=== PATIENT | male | born 1940 | race Caucasian/White ===

== ENCOUNTER 2023-09-06 18:51 | Inpatient (IN) | payer MEDICARE, OTHER ==
[~2023-09-06] VITALS: Ht 175.3 cm; Wt 82.2 kg
[2023-09-06 19:00] VITALS: PULSE 122; RESP 9; O2SAT 91
[2023-09-06 19:15] VITALS: PULSE 116; RESP 14; O2SAT 77
[2023-09-06] MEDS: SODIUM CHLORIDE 0.9% 1,000 ML IV ONE ×2 (19:25→19:40)
[2023-09-06] MEDS: NOREPINEPHRINE 8 MG/250ML KIT 250 ML IV SCH (19:40)
[2023-09-06 19:45] LABS: Basophils # (auto) 0 10 ^3/uL (0-0.2); Eosinophils # (auto) 0 10 ^3/uL (0-0.8); Mean Corpuscular Hemoglobin 30.7 pg (28.0-32.0); White Blood Cell 24.2 10^3/uL (4.4-10.8)
[2023-09-06 19:47] LABS: Basophils % (auto) 0.1 % (0.0-2.0); Hematocrit 49.6 % (41.0-53.0); Hemoglobin 14.7 g/dL (13.5-17.5); Lymphocytes # (auto) 1.3 10 ^3/uL (0.4-5.4); Lymphocytes % (auto) 5.2 % (10.0-50.0); Mean Corpuscular Hgb Conc. 29.7 g/dL (32.0-36.0); Mean Corpuscular Volume 103.3 fL (80.0-100.0); Monocytes # (auto) 0.8 10 ^3/uL (0-1.3); Monocytes % (auto) 3.3 % (0.0-12.0); Neutrophils # (auto) 22.1 10 ^3/uL (1.6-8.6); Neutrophils % (auto) 91.4 % (37.0-80.0); Nucleated Red Blood Cells % 0.1 %; Red Cell Distribution Width 16.8 % (11.8-14.3)
[2023-09-06] MEDS: ROCURONIUM 10MG/ML 10ML VIAL IV ONE ×2 (19:50→20:12)
[2023-09-06] MEDS: ETOMIDATE (2MG/ML) 20ML VIAL IV ONE ×2 (19:50→20:12)
[2023-09-06] MEDS: NOREPINEPHRINE 8 MG/250ML KIT 250 ML IV ONE (19:55)
[2023-09-06 20:00] VITALS: BP 108/53; PULSE 120; RESP 18; O2SAT 100
[2023-09-06] MEDS: MIDAZOLAM DRIP 50 mg/50mL 50 ML IV SCH (20:00)
[2023-09-06 20:03] LABS: Urine Bacteria None Seen /hpf (None Seen)
[2023-09-06 20:11] LABS: Alanine Aminotransferase 48 U/L (7-40); Albumin 3.6 g/dL (3.2-4.8); Alkaline Phosphatase 96 U/L (46-116); Anion Gap 31.00001 (5-15); Aspartate Aminotransferase 66 U/L (13-40); Bilirubin, Total 0.4 mg/dL (0.2-1.0); Blood Urea Nitrogen 41 mg/dL (9-23); Calcium 9.6 mg/dL (8.5-10.1); Chloride 105 mmol/L (98-107); Potassium 4.4 mmol/L (3.5-5.1); Sodium 146 mmol/L (136-145); Total Protein 5.9 g/dL (5.7-8.2)
[2023-09-06] MEDS: MIDAZOLAM DRIP 50 mg/50mL 50 ML IV ONE (20:12)
[2023-09-06 20:21] LABS: INR 1.13 (0.9-1.15); Partial Thromboplastin Time 24.5 SEC (24.5-34.5); Prothrombin Time 11.9 sec (9.3-11.8)
[2023-09-06 20:26] LABS: Amphetamine Screen, Urine Neg (NEGATIVE); Barbiturate Scree,Urine Neg (NEGATIVE); Benzodiazephine Screen, Urine Neg (NEGATIVE); Cocaine Screen, Urine Neg (NEGATIVE); Opiate Scree,Urine Neg (NEGATIVE); Phencyclidine Screen, Urine Neg (NEGATIVE)
[2023-09-06 20:27] LABS: Cannabinoid Screen, Urine Neg (NEGATIVE)
[2023-09-06 20:31] LABS: Carbon Dioxide < 10 mmol/L (20-30); Glucose 961 mg/dL (74-106); Lactic Acid w/Reflex 3.6 mmol/L (0.4-2.0)
[2023-09-06 20:38] LABS: Blood Alcohol < 3.0 mg/dL (<10)
[2023-09-06 20:40] LABS: Urine Amorphous Crystal FEW /hpf (None Seen); Urine Blood 1+ /uL (Negative); Urine Clarity Clear (Clear); Urine Color Light-Yellow (Yellow); Urine Protein, UAD TRACE (Negative); Urine Specific Gravity 1.027 (1.001-1.035); Urine Urobilinogen Normal (Negative); Urine WBC 1 /hpf (0 - 3)
[2023-09-06] MEDS: PIPERACILLIN-TAZOB 3.375GM 100 ML IV ONE (20:45)
[2023-09-06 21:33] LABS: Base Excess -25.5 mmol/L (-2.0-2.0)
[2023-09-06] MEDS ORDERED: INSULIN DRIP 100 UNIT/100ML 100 ML IV SCH (21:45)
[2023-09-06] MEDS ORDERED: DEXTROSE (50%) 50ML SYRG IV PRN (21:45)
[2023-09-06 21:56] VITALS: BP 90/42; PULSE 103; RESP 18; O2SAT 100
[2023-09-06] MEDS: VANCOMYCIN 1GM/200ML 200 ML IV ONE (22:02)
[2023-09-06] MEDS: SODIUM BICARB 8.4% 50Meq/50ml SYR Vial IV ONE (22:08)
[2023-09-06] MEDS: ACCU-CHEK COMFORT CURVE STRIP VI SCH (22:23)
[2023-09-06] MEDS: INSULIN DRIP 100 UNIT/100ML 100 ML IV SCH (22:25)
[2023-09-06] MEDS ORDERED: VANCOMYCIN PER PHARMACY 0 MG IV SCH (22:45)
[2023-09-06] MEDS ORDERED: MORPHINE SULFATE INJ 2 MG/ml SYRG IV PRN (22:45)
[2023-09-06] MEDS ORDERED: NITROGLYCERIN 0.4 MG SL TAB SL PRN (22:45)
[2023-09-06] MEDS ORDERED: ONDANSETRON HCL 4 MG/2 ML VIAL IV PRN (22:45)
[2023-09-06 22:59] VITALS: BP 90/42; PULSE 103; RESP 18; TEMP 98.1; O2SAT 99
[2023-09-06 23:18] LABS: Potassium 4.7 mmol/L (3.5-5.1)
[2023-09-06] MEDS: VASOPRESSIN 20 UNIT/ML ONE (23:18)
[2023-09-06 23:19] LABS: Anion Gap 26.00001 (5-15); Calcium 8.3 mg/dL (8.5-10.1)
[2023-09-06] MEDS: ALBUMIN 5% 250 ML IV ONE (23:19)
[2023-09-06] MEDS: VASOPRESSIN 20 UNITS in SODIUM CHL 0.9% 99 ML IV SCH (23:20)
[2023-09-06 23:24] LABS: BUN/Creatinine Ratio 11.4 (10.0-20.0); Blood Urea Nitrogen 34 mg/dL (9-23)
[2023-09-06 23:31] LABS: Chloride 115 mmol/L (98-107); Sodium 151 mmol/L (136-145)
[2023-09-06 23:45] LABS: Carbon Dioxide < 10 mmol/L (20-30); Glucose 801 mg/dL (74-106)
[2023-09-07] VITALS (87 sets, daily range): BP systolic 72–157; BP diastolic 1–73; PULSE 62–117; RESP 17–25; TEMP 67.6–101.5; O2SAT 85–100
[2023-09-07] MEDS: ENOXAPARIN SOD 100 MG/1 ML SYRINGE SC ONE (00:29)
[2023-09-07] MEDS: LACTATED RINGER'S 1,000 ML IV ONE (00:35)
[2023-09-07] MEDS: SODIUM BICARB 8.4% 50Meq/50ml SYR Vial IV ONE ×2 (01:29→01:33)
[2023-09-07] MEDS: SODIUM BICARB 50mEq/50ml Vial 100 ML in SOD CHL 0.45% 1,000 ML IV SCH (01:30)
[2023-09-07] MEDS ORDERED: DEXTROSE (50%) 50ML SYRG IV PRN ×2 (02:00→06:30)
[2023-09-07] MEDS: INSULIN DRIP 100 UNIT/100ML 100 ML IV SCH ×3 (03:06→06:30)
[2023-09-07] MEDS: ACCU-CHEK COMFORT CURVE STRIP VI SCH ×3 (03:07→15:52)
[2023-09-07 03:11] LABS: Base Excess -9.8 mmol/L (-2.0-2.0)
[2023-09-07] MEDS: PHENYLEPHRINE IV 250 ML IV SCH (03:30)
[2023-09-07] MEDS: fentaNYL Drip 2500mCg/250mlNS 250 ML IV SCH (04:24)
[2023-09-07 04:25] LABS: Basophils # (auto) 0 10 ^3/uL (0-0.2); Basophils % (auto) 0.2 % (0.0-2.0); Eosinophils # (auto) 0 10 ^3/uL (0-0.8); Eosinophils % (auto) 0.1 % (0.0-7.0); Hematocrit 40.2 % (41.0-53.0); Hemoglobin 13.1 g/dL (13.5-17.5); Lymphocytes # (auto) 1.4 10 ^3/uL (0.4-5.4); Lymphocytes % (auto) 7.4 % (10.0-50.0); Mean Corpuscular Hemoglobin 30.9 pg (28.0-32.0); Mean Corpuscular Hgb Conc. 32.6 g/dL (32.0-36.0); Mean Corpuscular Volume 94.8 fL (80.0-100.0); Monocytes # (auto) 0.2 10 ^3/uL (0-1.3); Monocytes % (auto) 1.2 % (0.0-12.0); Neutrophils # (auto) 16.7 10 ^3/uL (1.6-8.6); Neutrophils % (auto) 91.1 % (37.0-80.0); Nucleated Red Blood Cells % 0.2 %; Red Blood Cells 4.24 10^6/uL (4.5-5.90); Red Cell Distribution Width 15.5 % (11.8-14.3); White Blood Cell 18.3 10^3/uL (4.4-10.8)
[2023-09-07 04:50] LABS: Alanine Aminotransferase 64 U/L (7-40); Alkaline Phosphatase 80 U/L (46-116); Anion Gap 22 (5-15); Aspartate Aminotransferase 198 U/L (13-40); BUN/Creatinine Ratio 16.7 (10.0-20.0); Bilirubin, Total 0.7 mg/dL (0.2-1.0); Blood Urea Nitrogen 39 mg/dL (9-23); Calcium 7.8 mg/dL (8.7-10.4); Chloride 118 mmol/L (98-107); Total Protein 4.7 g/dL (5.7-8.2)
[2023-09-07 05:18] LABS: Carbon Dioxide 20 mmol/L (20-30); Potassium 2.7 mmol/L (3.5-5.1); Sodium 160 mmol/L (136-145)
[2023-09-07 05:21] LABS: Glucose 509 mg/dL (74-106)
[2023-09-07] MEDS: SOD CHL 0.45% 1,000 ML IV SCH (05:39)
[2023-09-07] MEDS: POTASSIUM CHL 20MEQ/100ML 100 ML IV SCH ×2 (05:40→11:03)
[2023-09-07] MEDS ORDERED: EPINEPHrine HCL 250 ML IV SCH (09:45)
[2023-09-07] MEDS ORDERED: ENOXAPARIN SOD 40 MG/0.4 ML SYRINGE SC SCH (10:00)
[2023-09-07] MEDS ORDERED: PIPERACILLIN-TAZOB 3.375GM 100 ML IV SCH (10:00)
[2023-09-07] MEDS ORDERED: MEROPENEM 1GM IVPB 50 ML IV SCH (10:00)
[2023-09-07] MEDS: PANTOPRAZOLE 40 MG/10 ML VIAL INJ IV SCH (10:20)
[2023-09-07] MEDS: D5W 5% 1,000 ML IV SCH ×3 (10:21→19:59)
[2023-09-07] MEDS: INSULIN LANTUS (GLARGINE) 1 /0.01ml (100units/ml) SC SCH ×2 (10:21→22:18)
[2023-09-07] MEDS: ACETAMINOPHEN 325 MG TAB PO PRN (10:31)
[2023-09-07 10:42] LABS: Magnesium 2.4 mg/dL (1.6-2.6)
[2023-09-07 11:09] LABS: Chloride 124 mmol/L (98-107); Potassium 3.2 mmol/L (3.5-5.1)
[2023-09-07 11:10] LABS: Anion Gap 14 (5-15); Calcium 8.7 mg/dL (8.5-10.1); Carbon Dioxide 25 mmol/L (20-30)
[2023-09-07 11:15] LABS: BUN/Creatinine Ratio 12.5 (10.0-20.0); Blood Urea Nitrogen 33 mg/dL (9-23)
[2023-09-07 11:21] LABS: Lactic Acid w/Reflex 5.1 mmol/L (0.4-2.0)
[2023-09-07 11:22] LABS: Glucose 149 mg/dL (74-106); Sodium 163 mmol/L (136-145)
[2023-09-07 12:15] LABS: Base Excess -2.7 mmol/L (-2.0-2.0)
[2023-09-07] MEDS: PHENYLEPHRINE INJ 40 MG in SODIUM CHL 0.9% 246 ML IV SCH (12:16)
[2023-09-07] MEDS: NOREPINEPHRINE BITARTRATE 16 MG in SODIUM CHL 0.9% 234 ML IV SCH (12:26)
[2023-09-07] MEDS: MEROPENEM 1GM IVPB 50 ML IV ONE (12:42)
[2023-09-07] MEDS ORDERED: EPINEPHrine HCL INJECTION 16 MG in D5W 5% 234 ML IV SCH (13:30)
[2023-09-07 14:40] LABS: Chloride 124 mmol/L (98-107); Potassium 4.5 mmol/L (3.5-5.1)
[2023-09-07 14:41] LABS: Anion Gap 9 (5-15); Carbon Dioxide 28 mmol/L (20-30)
[2023-09-07 14:42] LABS: Calcium 8.3 mg/dL (8.7-10.4)
[2023-09-07 14:47] LABS: Blood Urea Nitrogen 39 mg/dL (9-23); Glucose 153 mg/dL (74-106)
[2023-09-07 14:59] LABS: Sodium 161 mmol/L (136-145)
[2023-09-07] MEDS: FLECAINIDE ACETATE 50 MG TAB GT ONE (15:15)
[2023-09-07] MEDS: VANCOMYCIN 1GM/200ML 200 ML IV ONE (15:44)
[2023-09-07] MEDS: InsuLIN REG 1unit/0.01ml Soln (100units/ml) SC SCH (15:52)
[2023-09-07] MEDS: ENOXAPARIN SOD 80 MG/0.8ML SYRINGE SC SCH (16:01)
[2023-09-07] MEDS: PHENYLEPHRINE INJ 80 MG in SODIUM CHL 0.9% 242 ML IV SCH (16:19)
[2023-09-07 16:21] LABS: Rapid Influenza A Negative (Negative); Rapid Influenza B Negative (Negative)
[2023-09-07 16:27] LABS: COVID19 ANTIGEN SOFIA FIA NEGATIVE (NEGATIVE)
[2023-09-07] MEDS: EPINEPHrine HCL INJECTION 16 MG in D5W 5% 234 ML IV SCH (19:28)
[2023-09-07] MEDS: NOREPINEPHRINE BITARTRATE 32 MG in SODIUM CHL 0.9% 218 ML IV SCH (19:58)
[2023-09-07] MEDS: MEROPENEM 500MG IVPB 50 ML IV SCH (22:12)
[2023-09-07] MEDS: FLECAINIDE ACETATE 50 MG TAB GT SCH (22:13)
[2023-09-08] VITALS (122 sets, daily range): BP systolic 56–158; BP diastolic 29–87; PULSE 62–78; RESP 17–20; TEMP 97.7–99.9; O2SAT 97–100
[2023-09-08 03:57] LABS: Basophils # (auto) 0 10 ^3/uL (0-0.2); Basophils % (auto) 0.2 % (0.0-2.0); Eosinophils # (auto) 0.1 10 ^3/uL (0-0.8); Eosinophils % (auto) 0.7 % (0.0-7.0); Hematocrit 41.4 % (41.0-53.0); Hemoglobin 13.4 g/dL (13.5-17.5); Lymphocytes # (auto) 1.7 10 ^3/uL (0.4-5.4); Lymphocytes % (auto) 10.7 % (10.0-50.0); Mean Corpuscular Hemoglobin 30.2 pg (28.0-32.0); Mean Corpuscular Hgb Conc. 32.4 g/dL (32.0-36.0); Mean Corpuscular Volume 93.3 fL (80.0-100.0); Monocytes # (auto) 0.4 10 ^3/uL (0-1.3); Monocytes % (auto) 2.8 % (0.0-12.0); Neutrophils # (auto) 13.3 10 ^3/uL (1.6-8.6); Neutrophils % (auto) 85.6 % (37.0-80.0); Nucleated Red Blood Cells % 0.4 %; Red Blood Cells 4.44 10^6/uL (4.5-5.90); Red Cell Distribution Width 15.8 % (11.8-14.3); White Blood Cell 15.5 10^3/uL (4.4-10.8)
[2023-09-08 04:19] LABS: Alanine Aminotransferase 70 U/L (7-40); Albumin 2.9 g/dL (3.2-4.8); Alkaline Phosphatase 70 U/L (46-116); Anion Gap 10 (5-15); Aspartate Aminotransferase 188 U/L (13-40); BUN/Creatinine Ratio 14.6 (10.0-20.0); Blood Urea Nitrogen 39 mg/dL (9-23); Calcium 7.4 mg/dL (8.7-10.4); Carbon Dioxide 24 mmol/L (20-30); Chloride 122 mmol/L (98-107); Magnesium 1.9 mg/dL (1.6-2.6); Potassium 3.7 mmol/L (3.5-5.1); Sodium 156 mmol/L (136-145)
[2023-09-08 04:20] LABS: Bilirubin, Total 0.5 mg/dL (0.2-1.0); Phosphorus 3.2 mg/dL (2.4-5.1); Total Protein 4.5 g/dL (5.7-8.2)
[2023-09-08 04:22] LABS: Glucose 359 mg/dL (74-106)
[2023-09-08 04:26] LABS: Lactic Acid w/Reflex 2.8 mmol/L (0.4-2.0)
[2023-09-08 04:39] LABS: Creatine Kinase IFCC 4825 U/L (46-171)
[2023-09-08] MEDS ORDERED: ENOXAPARIN SOD 30 MG/0.3 ML SYRINGE SC SCH (10:00)
[2023-09-08 10:01] LABS: Protein, Urine 92.6 mg/dL (0.0-11.9)
[2023-09-08 10:03] LABS: Creatinine, Urine 42.63 mg/dL (30.0-125.0)
[2023-09-08] MEDS: FREE WATER GT SCH ×2 (12:06→17:31)
[2023-09-08] MEDS: POTASSIUM CHL 20MEQ/100ML 100 ML IV ONE (13:20)
[2023-09-08] MEDS: MAGNESIUM SULFATE 1GM/100ML 100 ML IV ONE (13:20)
[2023-09-08 15:06] LABS: Albumin 2.9 g/dL (3.2-4.8); Alkaline Phosphatase 107 U/L (46-116); Anion Gap 9 (5-15); Aspartate Aminotransferase 209 U/L (13-40); Calcium 7.8 mg/dL (8.5-10.1); Carbon Dioxide 26 mmol/L (20-30); Chloride 120 mmol/L (98-107); Sodium 155 mmol/L (136-145)
[2023-09-08 15:07] LABS: Bilirubin, Total 0.4 mg/dL (0.2-1.0); Total Protein 4.7 g/dL (5.7-8.2)
[2023-09-08 15:25] LABS: Alanine Aminotransferase 68 U/L (7-40); Potassium 4.6 mmol/L (3.5-5.1)
[2023-09-08 15:26] LABS: Glucose 118 mg/dL (74-106)
[2023-09-08 15:36] LABS: BUN/Creatinine Ratio 14.7 (10.0-20.0); Blood Urea Nitrogen 37 mg/dL (9-23)
[2023-09-08] MEDS: VANCOMYCIN 500 MG in D5W 5% 100 ML IV ONE (17:00)
[2023-09-08] MEDS: DEXTROSE (50%) 50ML SYRG IV PRN (23:30)
[2023-09-08] MEDS ORDERED: DEXTROSE (50%) 50ML SYRG IV PRN (23:45)
[2023-09-09] VITALS (116 sets, daily range): BP systolic 76–159; BP diastolic 52–97; PULSE 59–91; RESP 0–21; TEMP 95.7–99.9; O2SAT 98–100
[2023-09-09] MEDS: D5W 5% 1,000 ML IV SCH
[2023-09-09] MEDS: ACCU-CHEK COMFORT CURVE STRIP VI SCH
[2023-09-09] MEDS: InsuLIN REG 1unit/0.01ml Soln (100units/ml) SC SCH
[2023-09-09 04:00] LABS: Basophils # (auto) 0 10 ^3/uL (0-0.2); Basophils % (auto) 0.3 % (0.0-2.0); Eosinophils # (auto) 0.1 10 ^3/uL (0-0.8); Eosinophils % (auto) 0.8 % (0.0-7.0); Hematocrit 39.8 % (41.0-53.0); Lymphocytes # (auto) 1.4 10 ^3/uL (0.4-5.4); Lymphocytes % (auto) 10.8 % (10.0-50.0); Mean Corpuscular Hemoglobin 30.6 pg (28.0-32.0); Mean Corpuscular Hgb Conc. 32.7 g/dL (32.0-36.0); Mean Corpuscular Volume 93.8 fL (80.0-100.0); Monocytes # (auto) 0.5 10 ^3/uL (0-1.3); Monocytes % (auto) 3.5 % (0.0-12.0); Neutrophils # (auto) 11.2 10 ^3/uL (1.6-8.6); Neutrophils % (auto) 84.6 % (37.0-80.0); Nucleated Red Blood Cells % 0.3 %; Red Blood Cells 4.24 10^6/uL (4.5-5.90); White Blood Cell 13.3 10^3/uL (4.4-10.8)
[2023-09-09 04:47] LABS: Alanine Aminotransferase 71 U/L (7-40); Albumin 2.9 g/dL (3.2-4.8); Alkaline Phosphatase 83 U/L (46-116); Anion Gap 8 (5-15); Aspartate Aminotransferase 169 U/L (13-40); BUN/Creatinine Ratio 14.8 (10.0-20.0); Bilirubin, Total 0.7 mg/dL (0.2-1.0); Blood Urea Nitrogen 34 mg/dL (9-23); Calcium 8.3 mg/dL (8.5-10.1); Carbon Dioxide 26 mmol/L (20-30); Chloride 118 mmol/L (98-107); Glucose 141 mg/dL (74-106); Potassium 4.2 mmol/L (3.5-5.1); Sodium 152 mmol/L (136-145); Total Protein 4.7 g/dL (5.7-8.2)
[2023-09-09 05:44] LABS: Magnesium 2.2 mg/dL (1.6-2.6)
[2023-09-09] MEDS ORDERED: Glucerna 1.2 Cal 1Liter BOTTLE GT SCH (11:30)
[2023-09-09 14:55] LABS: Chloride 118 mmol/L (98-107); Potassium 4.8 mmol/L (3.5-5.1); Sodium 150 mmol/L (136-145)
[2023-09-09 14:56] LABS: Anion Gap 7 (5-15); Carbon Dioxide 25 mmol/L (20-30)
[2023-09-09 14:57] LABS: Calcium 8.1 mg/dL (8.5-10.1)
[2023-09-09 15:02] LABS: BUN/Creatinine Ratio 18.4 (10.0-20.0); Blood Urea Nitrogen 37 mg/dL (9-23); Glucose 232 mg/dL (74-106)
[2023-09-09] MEDS ORDERED: Vital AF 1.2 Cal 1 liter bottle GT SCH (15:15)
[2023-09-09] MEDS: MEROPENEM 1GM IVPB 50 ML IV SCH (18:52)
[2023-09-09] MEDS: VANCOMYCIN 500 MG in D5W 5% 100 ML IV ONE (18:53)
[2023-09-10] VITALS (114 sets, daily range): BP systolic 87–143; BP diastolic 56–94; PULSE 61–84; RESP 12–19; TEMP 91.4–99.7; O2SAT 99–100
[2023-09-10 03:59] LABS: Basophils # (auto) 0 10 ^3/uL (0-0.2); Basophils % (auto) 0.2 % (0.0-2.0); Eosinophils # (auto) 0.1 10 ^3/uL (0-0.8); Eosinophils % (auto) 0.5 % (0.0-7.0); Hematocrit 39.5 % (41.0-53.0); Hemoglobin 13.1 g/dL (13.5-17.5); Lymphocytes % (auto) 8.8 % (10.0-50.0); Mean Corpuscular Hgb Conc. 33.3 g/dL (32.0-36.0); Mean Corpuscular Volume 93.3 fL (80.0-100.0); Monocytes # (auto) 0.5 10 ^3/uL (0-1.3); Monocytes % (auto) 4.3 % (0.0-12.0); Neutrophils # (auto) 9.8 10 ^3/uL (1.6-8.6); Neutrophils % (auto) 86.2 % (37.0-80.0); Nucleated Red Blood Cells % 0.2 %; Red Blood Cells 4.23 10^6/uL (4.5-5.90); Red Cell Distribution Width 15.5 % (11.8-14.3); White Blood Cell 11.3 10^3/uL (4.4-10.8)
[2023-09-10 04:12] LABS: Alanine Aminotransferase 63 U/L (7-40); Albumin 2.9 g/dL (3.2-4.8); Alkaline Phosphatase 87 U/L (46-116); Anion Gap 8 (5-15); Aspartate Aminotransferase 116 U/L (13-40); BUN/Creatinine Ratio 17.9 (10.0-20.0); Bilirubin, Total 0.7 mg/dL (0.2-1.0); Blood Urea Nitrogen 33 mg/dL (9-23); Calcium 9.1 mg/dL (8.5-10.1); Carbon Dioxide 26 mmol/L (20-30); Chloride 118 mmol/L (98-107); Glucose 223 mg/dL (74-106); Potassium 4.3 mmol/L (3.5-5.1); Sodium 152 mmol/L (136-145); Total Protein 4.9 g/dL (5.7-8.2)
[2023-09-10 07:27] LABS: Base Excess -1.5 mmol/L (-2.0-2.0)
[2023-09-10] MEDS: FREE WATER GT SCH (13:10)
[2023-09-10] MEDS: FUROSEMIDE 40 MG/4 ML VIAL IV ONE (15:34)
[2023-09-10] MEDS: VANCOMYCIN 500 MG in D5W 5% 100 ML IV ONE (17:11)
[2023-09-11] VITALS (113 sets, daily range): BP systolic 74–144; BP diastolic 50–89; PULSE 64–85; RESP 0–21; TEMP 73.2–99; O2SAT 99–100
[2023-09-11 04:29] LABS: Alanine Aminotransferase 49 U/L (7-40); Albumin 2.9 g/dL (3.2-4.8); Alkaline Phosphatase 112 U/L (46-116); Anion Gap 8 (5-15); Aspartate Aminotransferase 85 U/L (13-40); BUN/Creatinine Ratio 18.5 (10.0-20.0); Blood Urea Nitrogen 29 mg/dL (9-23); Calcium 9.1 mg/dL (8.5-10.1); Carbon Dioxide 27 mmol/L (20-30); Chloride 111 mmol/L (98-107); Glucose 245 mg/dL (74-106); Potassium 3.8 mmol/L (3.5-5.1); Sodium 146 mmol/L (136-145)
[2023-09-11 04:30] LABS: Bilirubin, Total 0.7 mg/dL (0.2-1.0)
[2023-09-11 06:47] LABS: Base Excess 2.2 mmol/L (-2.0-2.0)
[2023-09-11 07:14] LABS: Basophils # (auto) 0 10 ^3/uL (0-0.2); Basophils % (auto) 0.4 % (0.0-2.0); Eosinophils # (auto) 0 10 ^3/uL (0-0.8); Eosinophils % (auto) 0.6 % (0.0-7.0); Hematocrit 40.2 % (41.0-53.0); Hemoglobin 13.5 g/dL (13.5-17.5); Lymphocytes # (auto) 0.8 10 ^3/uL (0.4-5.4); Lymphocytes % (auto) 10.4 % (10.0-50.0); Mean Corpuscular Hemoglobin 31.3 pg (28.0-32.0); Mean Corpuscular Hgb Conc. 33.5 g/dL (32.0-36.0); Mean Corpuscular Volume 93.3 fL (80.0-100.0); Monocytes # (auto) 0.5 10 ^3/uL (0-1.3); Monocytes % (auto) 6.1 % (0.0-12.0); Neutrophils # (auto) 6.6 10 ^3/uL (1.6-8.6); Neutrophils % (auto) 82.5 % (37.0-80.0); Nucleated Red Blood Cells % 0.2 %; Red Cell Distribution Width 15.3 % (11.8-14.3)
[2023-09-11] MEDS: POTASSIUM CHL 20MEQ/100ML 100 ML IV ONE (08:40)
[2023-09-11] MEDS: INSULIN LANTUS (GLARGINE) 1 /0.01ml (100units/ml) SC SCH ×2 (10:30→22:00)
[2023-09-11 13:11] LABS: Magnesium 2.2 mg/dL (1.6-2.6)
[2023-09-11] MEDS: Vital AF 1.2 Cal 1 liter bottle GT SCH (19:31)
[2023-09-11] MEDS: VANCOMYCIN 500 MG in D5W 5% 100 ML IV ONE (20:08)
[2023-09-12] VITALS (121 sets, daily range): BP systolic 77–139; BP diastolic 48–89; PULSE 67–97; RESP 11–36; TEMP 98.1–100; O2SAT 80–100
[2023-09-12] MEDS: FREE WATER GT SCH (01:54)
[2023-09-12 03:56] LABS: Basophils # (auto) 0 10 ^3/uL (0-0.2); Basophils % (auto) 0.1 % (0.0-2.0); Eosinophils # (auto) 0 10 ^3/uL (0-0.8); Eosinophils % (auto) 0.7 % (0.0-7.0); Hematocrit 37.9 % (41.0-53.0); Hemoglobin 12.7 g/dL (13.5-17.5); Lymphocytes # (auto) 0.8 10 ^3/uL (0.4-5.4); Lymphocytes % (auto) 12.7 % (10.0-50.0); Mean Corpuscular Hemoglobin 31.1 pg (28.0-32.0); Mean Corpuscular Hgb Conc. 33.4 g/dL (32.0-36.0); Monocytes # (auto) 0.6 10 ^3/uL (0-1.3); Monocytes % (auto) 8.6 % (0.0-12.0); Neutrophils # (auto) 5.2 10 ^3/uL (1.6-8.6); Neutrophils % (auto) 77.9 % (37.0-80.0); Nucleated Red Blood Cells % 0.1 %; Red Blood Cells 4.08 10^6/uL (4.5-5.90); Red Cell Distribution Width 15.3 % (11.8-14.3); White Blood Cell 6.6 10^3/uL (4.4-10.8)
[2023-09-12 04:16] LABS: Alanine Aminotransferase 56 U/L (7-40); Albumin 2.8 g/dL (3.2-4.8); Alkaline Phosphatase 100 U/L (46-116); Anion Gap 8 (5-15); Aspartate Aminotransferase 64 U/L (13-40); BUN/Creatinine Ratio 24.1 (10.0-20.0); Bilirubin, Total 0.7 mg/dL (0.2-1.0); Blood Urea Nitrogen 33 mg/dL (9-23); Carbon Dioxide 27 mmol/L (20-30); Chloride 109 mmol/L (98-107); Potassium 3.9 mmol/L (3.5-5.1); Sodium 144 mmol/L (136-145); Total Protein 4.9 g/dL (5.7-8.2)
[2023-09-12 04:20] LABS: Glucose 119 mg/dL (74-106)
[2023-09-12 06:34] LABS: Base Excess 1.7 mmol/L (-2.0-2.0)
[2023-09-12 07:20] LABS: Magnesium 1.8 mg/dL (1.6-2.6)
[2023-09-12] MEDS: FUROSEMIDE 20 MG/2 ML VIAL IV SCH (12:21)
[2023-09-12] MEDS: MAGNESIUM SULFATE 1GM/100ML 100 ML IV ONE (12:26)
[2023-09-13] VITALS (69 sets, daily range): BP systolic 91–145; BP diastolic 58–86; PULSE 70–89; RESP 12–25; TEMP 97.2–99.1; O2SAT 98–100
[2023-09-13 04:16] LABS: Basophils # (auto) 0 10 ^3/uL (0-0.2); Basophils % (auto) 0.2 % (0.0-2.0); Eosinophils # (auto) 0 10 ^3/uL (0-0.8); Eosinophils % (auto) 0.6 % (0.0-7.0); Hematocrit 37.3 % (41.0-53.0); Hemoglobin 12.6 g/dL (13.5-17.5); Lymphocytes # (auto) 0.8 10 ^3/uL (0.4-5.4); Lymphocytes % (auto) 12.2 % (10.0-50.0); Mean Corpuscular Hemoglobin 30.8 pg (28.0-32.0); Mean Corpuscular Hgb Conc. 33.8 g/dL (32.0-36.0); Mean Corpuscular Volume 91.2 fL (80.0-100.0); Monocytes # (auto) 0.7 10 ^3/uL (0-1.3); Monocytes % (auto) 9.6 % (0.0-12.0); Neutrophils # (auto) 5.3 10 ^3/uL (1.6-8.6); Neutrophils % (auto) 77.4 % (37.0-80.0); Nucleated Red Blood Cells % 0.2 %; Red Blood Cells 4.09 10^6/uL (4.5-5.90); Red Cell Distribution Width 15.1 % (11.8-14.3); White Blood Cell 6.9 10^3/uL (4.4-10.8)
[2023-09-13 05:34] LABS: Alanine Aminotransferase 63 U/L (7-40); Albumin 3.1 g/dL (3.2-4.8); Alkaline Phosphatase 124 U/L (46-116); Anion Gap 8 (5-15); Aspartate Aminotransferase 57 U/L (13-40); BUN/Creatinine Ratio 27.6 (10.0-20.0); Blood Urea Nitrogen 37 mg/dL (9-23); Calcium 8.9 mg/dL (8.5-10.1); Carbon Dioxide 29 mmol/L (20-30); Chloride 105 mmol/L (98-107); Glucose 202 mg/dL (74-106); Magnesium 1.9 mg/dL (1.6-2.6); Potassium 3.6 mmol/L (3.5-5.1); Sodium 142 mmol/L (136-145)
[2023-09-13 05:35] LABS: Bilirubin, Total 0.7 mg/dL (0.2-1.0); Total Protein 5.3 g/dL (5.7-8.2)
[2023-09-13 05:44] LABS: CRP High Sensitivity 13.59 mg/dL (<1.0)
[2023-09-13 07:37] LABS: Base Excess 4.1 mmol/L (-2.0-2.0)
[2023-09-13] MEDS ORDERED: DEXTROSE (50%) 50ML SYRG IV PRN (14:15)
[2023-09-13] MEDS: POTASSIUM CHL 20MEQ/100ML 100 ML IV SCH (14:15)
[2023-09-13] MEDS: SOD CHL 0.45% 1,000 ML IV SCH (15:21)
[2023-09-13] MEDS: InsuLIN REG 1unit/0.01ml Soln (100units/ml) SC SCH (18:00)
[2023-09-13] MEDS: ACCU-CHEK COMFORT CURVE STRIP VI SCH (18:07)
[2023-09-13] MEDS: INSULIN LANTUS (GLARGINE) 1 /0.01ml (100units/ml) SC SCH (21:52)
[2023-09-14] VITALS (49 sets, daily range): BP systolic 98–137; BP diastolic 47–83; PULSE 76–93; RESP 8–30; TEMP 98.8–99.7; O2SAT 95–100
[2023-09-14 03:54] LABS: Basophils # (auto) 0 10 ^3/uL (0-0.2); Basophils % (auto) 0.2 % (0.0-2.0); Eosinophils # (auto) 0 10 ^3/uL (0-0.8); Eosinophils % (auto) 0.7 % (0.0-7.0); Hematocrit 36.6 % (41.0-53.0); Hemoglobin 12.4 g/dL (13.5-17.5); Lymphocytes # (auto) 0.8 10 ^3/uL (0.4-5.4); Mean Corpuscular Hgb Conc. 33.8 g/dL (32.0-36.0); Mean Corpuscular Volume 91.8 fL (80.0-100.0); Monocytes # (auto) 0.5 10 ^3/uL (0-1.3); Monocytes % (auto) 7.1 % (0.0-12.0); Neutrophils # (auto) 5.5 10 ^3/uL (1.6-8.6); Nucleated Red Blood Cells % 0.2 %; Red Blood Cells 3.99 10^6/uL (4.5-5.90); Red Cell Distribution Width 15.2 % (11.8-14.3); White Blood Cell 6.9 10^3/uL (4.4-10.8)
[2023-09-14 04:07] LABS: Alanine Aminotransferase 53 U/L (7-40); Albumin 2.9 g/dL (3.2-4.8); Alkaline Phosphatase 113 U/L (46-116); Anion Gap 8 (5-15); Aspartate Aminotransferase 46 U/L (13-40); BUN/Creatinine Ratio 29.8 (10.0-20.0); Bilirubin, Total 0.7 mg/dL (0.2-1.0); Blood Urea Nitrogen 34 mg/dL (9-23); Calcium 8.8 mg/dL (8.5-10.1); Carbon Dioxide 31 mmol/L (20-30); Chloride 105 mmol/L (98-107); Glucose 216 mg/dL (74-106); Magnesium 1.8 mg/dL (1.6-2.6); Potassium 3.3 mmol/L (3.5-5.1); Sodium 144 mmol/L (136-145); Total Protein 5.1 g/dL (5.7-8.2)
[2023-09-14] MEDS: POTASSIUM CHL 20MEQ/100ML 100 ML IV ONE (06:31)
[2023-09-14 07:06] LABS: Base Excess 5.3 mmol/L (-2.0-2.0)
[2023-09-14] MEDS: MAGNESIUM SULFATE 1GM/100ML 100 ML IV SCH (11:58)
[2023-09-14] MEDS: POTASSIUM EFFERVESENT TAB 25 MEQ PO ONE (12:33)
[2023-09-14] MEDS: MEROPENEM 1GM IVPB 50 ML IV SCH (21:42)
[2023-09-15] VITALS (45 sets, daily range): BP systolic 80–138; BP diastolic 43–74; PULSE 64–94; RESP 7–20; TEMP 94.6–99.5; O2SAT 0–100
[2023-09-15 04:23] LABS: Basophils # (auto) 0 10 ^3/uL (0-0.2); Basophils % (auto) 0.3 % (0.0-2.0); Eosinophils # (auto) 0 10 ^3/uL (0-0.8); Eosinophils % (auto) 0.5 % (0.0-7.0); Hematocrit 33.8 % (41.0-53.0); Hemoglobin 11.7 g/dL (13.5-17.5); Lymphocytes # (auto) 0.9 10 ^3/uL (0.4-5.4); Lymphocytes % (auto) 12.1 % (10.0-50.0); Mean Corpuscular Hemoglobin 31.9 pg (28.0-32.0); Mean Corpuscular Hgb Conc. 34.6 g/dL (32.0-36.0); Mean Corpuscular Volume 92.3 fL (80.0-100.0); Monocytes # (auto) 0.5 10 ^3/uL (0-1.3); Monocytes % (auto) 6.7 % (0.0-12.0); Neutrophils % (auto) 80.4 % (37.0-80.0); Nucleated Red Blood Cells % 0.1 %; Red Blood Cells 3.66 10^6/uL (4.5-5.90); Red Cell Distribution Width 15.2 % (11.8-14.3); White Blood Cell 7.5 10^3/uL (4.4-10.8)
[2023-09-15 04:42] LABS: Alanine Aminotransferase 50 U/L (7-40); Albumin 2.9 g/dL (3.2-4.8); Alkaline Phosphatase 103 U/L (46-116); Anion Gap 7 (5-15); Aspartate Aminotransferase 46 U/L (13-40); BUN/Creatinine Ratio 29.8 (10.0-20.0); Bilirubin, Total 0.7 mg/dL (0.2-1.0); Blood Urea Nitrogen 28 mg/dL (9-23); Calcium 8.9 mg/dL (8.5-10.1); Carbon Dioxide 32 mmol/L (20-30); Chloride 104 mmol/L (98-107); Glucose 140 mg/dL (74-106); Magnesium 2.2 mg/dL (1.6-2.6); Phosphorus 3.4 mg/dL (2.4-5.1); Potassium 3.5 mmol/L (3.5-5.1); Sodium 143 mmol/L (136-145)
[2023-09-15 11:46] LABS: Base Excess 5.8 mmol/L (-2.0-2.0)
[2023-09-15] MEDS: ENOXAPARIN SOD 40 MG/0.4 ML SYRINGE SC ONE (12:20)
[2023-09-15] MEDS: POTASSIUM EFFERVESENT TAB 25 MEQ PO ONE (16:39)
[2023-09-15] MEDS: POTASSIUM CHL 20MEQ/100ML 100 ML IV ONE (18:01)
[2023-09-16] VITALS (29 sets, daily range): BP systolic 107–149; BP diastolic 46–69; PULSE 65–88; RESP 10–24; TEMP 96.4–99.2; O2SAT 95–100
[2023-09-16 04:10] LABS: Basophils # (auto) 0 10 ^3/uL (0-0.2); Basophils % (auto) 0.3 % (0.0-2.0); Eosinophils # (auto) 0 10 ^3/uL (0-0.8); Eosinophils % (auto) 0.7 % (0.0-7.0); Hematocrit 31.3 % (41.0-53.0); Hemoglobin 10.5 g/dL (13.5-17.5); Lymphocytes # (auto) 0.9 10 ^3/uL (0.4-5.4); Lymphocytes % (auto) 14.1 % (10.0-50.0); Mean Corpuscular Hgb Conc. 33.6 g/dL (32.0-36.0); Mean Corpuscular Volume 92.1 fL (80.0-100.0); Monocytes # (auto) 0.3 10 ^3/uL (0-1.3); Neutrophils # (auto) 5.2 10 ^3/uL (1.6-8.6); Neutrophils % (auto) 79.9 % (37.0-80.0); Nucleated Red Blood Cells % 0.1 %; Red Cell Distribution Width 15.1 % (11.8-14.3); White Blood Cell 6.5 10^3/uL (4.4-10.8)
[2023-09-16 04:15] LABS: Anion Gap 8 (5-15); Calcium 8.1 mg/dL (8.7-10.4); Carbon Dioxide 28 mmol/L (20-30); Chloride 108 mmol/L (98-107); Potassium 3.3 mmol/L (3.5-5.1); Sodium 144 mmol/L (136-145)
[2023-09-16 04:21] LABS: BUN/Creatinine Ratio 29.9 (10.0-20.0); Blood Urea Nitrogen 23 mg/dL (9-23); Glucose 85 mg/dL (74-106)
[2023-09-16] MEDS: ENOXAPARIN SOD 40 MG/0.4 ML SYRINGE SC SCH (09:40)
[2023-09-16] MEDS: POTASSIUM CHLORIDE 40 MEQ, LIDOCAINE 1% (LOCAL ANESTH.) 4 ML in SODIUM CHL 0.9% 250 ML IV ONE (11:42)
[2023-09-17] VITALS (14 sets, daily range): BP systolic 102–154; BP diastolic 41–75; PULSE 64–86; RESP 11–22; TEMP 97.9–98.9; O2SAT 97–100
[2023-09-17 04:09] LABS: Basophils # (auto) 0 10 ^3/uL (0-0.2); Basophils % (auto) 0.4 % (0.0-2.0); Eosinophils # (auto) 0.1 10 ^3/uL (0-0.8); Eosinophils % (auto) 1.1 % (0.0-7.0); Hematocrit 31.4 % (41.0-53.0); Hemoglobin 10.5 g/dL (13.5-17.5); Lymphocytes % (auto) 15.7 % (10.0-50.0); Mean Corpuscular Hemoglobin 30.8 pg (28.0-32.0); Mean Corpuscular Hgb Conc. 33.6 g/dL (32.0-36.0); Mean Corpuscular Volume 91.7 fL (80.0-100.0); Monocytes # (auto) 0.3 10 ^3/uL (0-1.3); Monocytes % (auto) 4.9 % (0.0-12.0); Neutrophils # (auto) 5.2 10 ^3/uL (1.6-8.6); Neutrophils % (auto) 77.9 % (37.0-80.0); Nucleated Red Blood Cells % 0.1 %; Red Blood Cells 3.43 10^6/uL (4.5-5.90); Red Cell Distribution Width 14.9 % (11.8-14.3); White Blood Cell 6.6 10^3/uL (4.4-10.8)
[2023-09-17 04:23] LABS: Alanine Aminotransferase 42 U/L (7-40); Albumin 2.5 g/dL (3.2-4.8); Alkaline Phosphatase 82 U/L (46-116); Anion Gap 6 (5-15); Aspartate Aminotransferase 36 U/L (13-40); Bilirubin, Total 0.6 mg/dL (0.2-1.0); Calcium 8.1 mg/dL (8.7-10.4); Carbon Dioxide 28 mmol/L (20-30); Chloride 110 mmol/L (98-107); Glucose 152 mg/dL (74-106); Potassium 3.8 mmol/L (3.5-5.1); Sodium 144 mmol/L (136-145); Total Protein 4.5 g/dL (5.7-8.2)
[2023-09-17 04:25] LABS: Blood Urea Nitrogen 20 mg/dL (9-23)
[2023-09-17] MEDS: POLYETHYLENE GLYCOL 17 GM PWDR PO SCH (11:36)
[2023-09-18] VITALS (9 sets, daily range): BP systolic 115–129; BP diastolic 52–62; PULSE 65–85; RESP 16–19; TEMP 97.3–98.4; O2SAT 96–100
[2023-09-19] VITALS (8 sets, daily range): BP systolic 110–129; BP diastolic 48–63; PULSE 71–84; RESP 18–22; TEMP 97.3–98.3; O2SAT 97–100
[2023-09-19] MEDS ORDERED: DEXTROSE (50%) 50ML SYRG IV PRN (08:15)
[2023-09-19 08:26] LABS: Basophils # (auto) 0 10 ^3/uL (0-0.2); Basophils % (auto) 0.4 % (0.0-2.0); Eosinophils # (auto) 0.1 10 ^3/uL (0-0.8); Eosinophils % (auto) 0.8 % (0.0-7.0); Hematocrit 31.4 % (41.0-53.0); Hemoglobin 10.7 g/dL (13.5-17.5); Lymphocytes # (auto) 0.9 10 ^3/uL (0.4-5.4); Lymphocytes % (auto) 10.7 % (10.0-50.0); Mean Corpuscular Hemoglobin 31.1 pg (28.0-32.0); Mean Corpuscular Hgb Conc. 34.1 g/dL (32.0-36.0); Mean Corpuscular Volume 91.2 fL (80.0-100.0); Monocytes # (auto) 0.4 10 ^3/uL (0-1.3); Monocytes % (auto) 5.1 % (0.0-12.0); Neutrophils # (auto) 6.9 10 ^3/uL (1.6-8.6); Red Blood Cells 3.44 10^6/uL (4.5-5.90); Red Cell Distribution Width 14.9 % (11.8-14.3); White Blood Cell 8.3 10^3/uL (4.4-10.8)
[2023-09-19 08:53] LABS: Alanine Aminotransferase 28 U/L (7-40); Albumin 2.5 g/dL (3.2-4.8); Alkaline Phosphatase 75 U/L (46-116); Aspartate Aminotransferase 28 U/L (13-40); BUN/Creatinine Ratio 12.3 (10.0-20.0); Bilirubin, Total 0.6 mg/dL (0.2-1.0); Blood Urea Nitrogen 9 mg/dL (9-23); Calcium 8.6 mg/dL (8.5-10.1); Carbon Dioxide 27 mmol/L (20-30); Glucose 156 mg/dL (74-106); Magnesium 1.6 mg/dL (1.6-2.6); Potassium 4.2 mmol/L (3.5-5.1); Sodium 139 mmol/L (136-145); Total Protein 4.6 g/dL (5.7-8.2)
[2023-09-19 08:56] LABS: Chloride 108 mmol/L (98-107)
[2023-09-19 08:57] LABS: Anion Gap 4 (5-15)
[2023-09-19] MEDS: FLECAINIDE ACETATE 50 MG TAB PO SCH (11:26)
[2023-09-19] MEDS: ACCU-CHEK COMFORT CURVE STRIP VI SCH (11:30)
[2023-09-19] MEDS: InsuLIN REG 1unit/0.01ml Soln (100units/ml) SC SCH (11:30)
[2023-09-19] MEDS: HYDROcodone-ACET 5/325MG TAB PO PRN (14:44)
[2023-09-20 08:00] VITALS: PULSE 92; PULSE 94
[2023-09-20 09:18] VITALS: BP 121/56; PULSE 59; RESP 16; TEMP 98.3; O2SAT 94
[2023-09-20] MEDS: MAGNESIUM OXIDE 400 MG TAB PO SCH (10:58)
[2023-09-20] MEDS: ENOXAPARIN SOD 30 MG/0.3 ML SYRINGE SC SCH (11:09)
[2023-09-20 11:39] LABS: Calcium 8.4 mg/dL (8.7-10.4); Carbon Dioxide 26 mmol/L (20-30)
[2023-09-20 11:44] LABS: Blood Urea Nitrogen 8 mg/dL (9-23); Glucose 240 mg/dL (74-106)
[2023-09-20 11:45] LABS: Magnesium 1.7 mg/dL (1.6-2.6)
[2023-09-20 11:50] LABS: Anion Gap 3 (5-15); Chloride 106 mmol/L (98-107); Potassium 4.2 mmol/L (3.5-5.1); Sodium 135 mmol/L (136-145)
[2023-09-20 11:57] LABS: BUN/Creatinine Ratio 11.9 (10.0-20.0)
[2023-09-20 13:00] VITALS: BP 115/64; PULSE 88; RESP 19; TEMP 97.5; O2SAT 98
[2023-09-20 17:20] VITALS: BP 99/44; PULSE 83; RESP 18; TEMP 97.2; O2SAT 97
[2023-09-20 20:00] VITALS: BP 117/54; PULSE 76; PULSE 82; PULSE 86; RESP 18; RESP 20; TEMP 97.3; O2SAT 100
[2023-09-20 21:00] VITALS: BP 117/54; PULSE 86; RESP 20; TEMP 97.3; O2SAT 98
[2023-09-21] VITALS (7 sets, daily range): BP systolic 109–151; BP diastolic 48–73; PULSE 63–85; RESP 18–20; TEMP 36.9; O2SAT 97–100
== END 2023-09-21 17:40 | DRG 870 ==
LOC: EDBD 18:51 → ER 18:51 → ICU WEST 23:00 → TELE 23:00 → ICU WEST 09-07 05:53 → TELE-CENTR 09-17 12:14
PROVIDERS: ADMIT Internal Medicine; ATTEND Neuromusculoskeletal Medicine & OMM
PROC: 5A1955Z Respiratory Ventilation, Greater than 96 Consecutive Hours (ICD-10-PCS; 2023-09-07)
PROC: 0BH17EZ Insertion of Endotracheal Airway into Trachea, Via Natural or Artificial Opening (ICD-10-PCS; 2023-09-07)
PROC: 02HV33Z Insertion of Infusion Device into Superior Vena Cava, Percutaneous Approach (ICD-10-PCS; principal; 2023-09-09)
PROC: B548ZZA Ultrasonography of Superior Vena Cava, Guidance (ICD-10-PCS; 2023-09-09)
PROC: 05H633Z Insertion of Infusion Device into Left Subclavian Vein, Percutaneous Approach (ICD-10-PCS; 2023-09-09)
PROC: B547ZZA Ultrasonography of Left Subclavian Vein, Guidance (ICD-10-PCS; 2023-09-09)
PROC: 5A12012 Performance of Cardiac Output, Single, Manual (ICD-10-PCS; 2023-09-19)
PROC: 05PYX3Z Removal of Infusion Device from Upper Vein, External Approach (ICD-10-PCS; 2023-09-19)
DX: A41.9 Sepsis, unspecified organism (principal); E11.10 Type 2 diabetes mellitus with ketoacidosis without coma; R65.21 Severe sepsis with septic shock; G93.41 Metabolic encephalopathy; I21.A1 Myocardial infarction type 2; I46.9 Cardiac arrest, cause unspecified; J96.01 Acute respiratory failure with hypoxia; J15.69 Pneumonia due to other Gram-negative bacteria; J15.9 Unspecified bacterial pneumonia; N17.0 Acute kidney failure with tubular necrosis; J69.0 Pneumonitis due to inhalation of food and vomit; K72.00 Acute and subacute hepatic failure without coma; M62.82 Rhabdomyolysis; E87.0 Hyperosmolality and hypernatremia; G93.1 Anoxic brain damage, not elsewhere classified; I47.19 Other supraventricular tachycardia; E87.1 Hypo-osmolality and hyponatremia; I12.9 Hypertensive chronic kidney disease with stage 1 through stage 4 chronic kidney disease, or unspecified chronic kidney disease; N18.9 Chronic kidney disease, unspecified; E87.6 Hypokalemia; E11.22 Type 2 diabetes mellitus with diabetic chronic kidney disease; Z20.822 Contact with and (suspected) exposure to COVID-19; I48.0 Paroxysmal atrial fibrillation; E86.0 Dehydration; E78.5 Hyperlipidemia, unspecified; I45.10 Unspecified right bundle-branch block; M50.30 Other cervical disc degeneration, unspecified cervical region; D69.6 Thrombocytopenia, unspecified; Z91.018 Allergy to other foods; Z79.4 Long term (current) use of insulin; L89.159 Pressure ulcer of sacral region, unspecified stage
CPT/HCPCS: 31500; 36415; 36600; 70450; 71045; 71250; 72125; 74176; 80048; 80053; 80061; 80202; 80307; 80320; 81001; 82010; 82043; 82140; 82306; 82533; 82550; 82570; 82805; 82962; 83036; 83605; 83735; 83880; 83970; 84100; 84156; 84295; 84300; 84443; 84484; 85025; 85379; 85610; 85730; 86141; 87040; 87070; 87081; 87086; 87205; 87426; 87804; 92610; 93005; 93306; 93970; 94003; 95819; 96365; 96368; 97110; 97116; 97163; 97530; A4618; C9113; G0378; J0171; J1815; J2001; J2185; J2543; J3480; J7060

== ENCOUNTER 2023-11-28 06:26 | Day surgery (SDC) | payer MEDICARE ==
[2023-11-27 12:50] LABS: Urine Bacteria None Seen /hpf (None Seen)
[2023-11-27 12:55] LABS: Basophils # (auto) 0 10 ^3/uL (0-0.2); Basophils % (auto) 0.4 % (0.0-2.0); Eosinophils # (auto) 0.2 10 ^3/uL (0-0.8); Eosinophils % (auto) 3.3 % (0.0-7.0); Hematocrit 41.1 % (41.0-53.0); Hemoglobin 14.2 g/dL (13.5-17.5); Lymphocytes # (auto) 0.8 10 ^3/uL (0.4-5.4); Lymphocytes % (auto) 11.5 % (10.0-50.0); Mean Corpuscular Hgb Conc. 34.4 g/dL (32.0-36.0); Monocytes # (auto) 0.6 10 ^3/uL (0-1.3); Monocytes % (auto) 9.1 % (0.0-12.0); Neutrophils # (auto) 5.4 10 ^3/uL (1.6-8.6); Neutrophils % (auto) 75.7 % (37.0-80.0); Nucleated Red Blood Cells % 0.1 %; Red Blood Cells 4.57 10^6/uL (4.5-5.90); Red Cell Distribution Width 13.1 % (11.8-14.3); White Blood Cell 7.1 10^3/uL (4.4-10.8)
[2023-11-27 13:15] LABS: Urine Blood Negative /uL (Negative); Urine Clarity Clear (Clear); Urine Color Dark-Yellow (Yellow); Urine Protein, UAD Negative (Negative); Urine Specific Gravity 1.012 (1.001-1.035); Urine Urobilinogen Normal (Negative); Urine WBC 2 /hpf (0 - 3); Urine pH 5.5 (5.0-9.0)
[2023-11-27 13:26] LABS: Alanine Aminotransferase 12 U/L (7-40); Albumin 3.9 g/dL (3.2-4.8); Alkaline Phosphatase 77 U/L (46-116); Anion Gap 9 (5-15); Aspartate Aminotransferase 13 U/L (13-40); BUN/Creatinine Ratio 13.4 (10.0-20.0); Bilirubin, Total 0.4 mg/dL (0.2-1.0); Blood Urea Nitrogen 11 mg/dL (9-23); Calcium 10.3 mg/dL (8.7-10.4); Carbon Dioxide 26 mmol/L (20-30); Chloride 102 mmol/L (98-107); Glucose 230 mg/dL (74-106); Potassium 3.6 mmol/L (3.5-5.1); Sodium 137 mmol/L (136-145); Total Protein 6.3 g/dL (5.7-8.2)
[2023-11-27 14:10] LABS: INR 1.08 (0.9-1.15); Partial Thromboplastin Time 25.9 SEC (24.5-34.5); Prothrombin Time 11.4 sec (9.3-11.8)
[~2023-11-28] VITALS: Ht 182.9 cm; Wt 68.0 kg
[2023-11-28] MEDS ORDERED: CIPROFLOXACIN 400MG/200ML 200 ML IV ONE (07:02)
[2023-11-28] MEDS ORDERED: fentaNYL CITRATE 100 MCG/2 ML VL ONE (07:52)
[2023-11-28] MEDS ORDERED: ONDANSETRON HCL 4 MG/2 ML VIAL ONE (07:55)
[2023-11-28] MEDS ORDERED: MIDAZOLAM HCL 2MG/2ML 2ml VIAL (1mg/ml) ONE (07:55)
[2023-11-28] MEDS ORDERED: LIDOCAINE 2% (LOCAL ANESTH.) PF 5ml SDV ONE (07:55)
[2023-11-28] MEDS ORDERED: PROPOFOL 10 MG/ML 20 ML IV ONE (07:55)
[2023-11-28] MEDS ORDERED: KETAMINE 50mg/ML 1ml syringe ONE (08:12)
[2023-11-28 08:42] VITALS: PULSE 103; RESP 22; TEMP 98.6; O2SAT 93
[2023-11-28] MEDS ORDERED: InsuLIN REG 1unit/0.01ml Soln (100units/ml) SC ONE (09:00)
[2023-11-28] MEDS ORDERED: HYDROmorphone HCL 2 MG/ML VL/or syr IV PRN (09:00)
[2023-11-28] MEDS ORDERED: ONDANSETRON HCL 4 MG/2 ML VIAL IV ONE (09:00)
[2023-11-28] MEDS: InsuLIN REG 1unit/0.01ml Soln (100units/ml) SC ONE (09:23)
[2023-11-28 11:55] VITALS: BP 115/53; PULSE 99; RESP 12; O2SAT 99
== END 2023-11-28 11:40 | disposition home or self-care (01) ==
LOC: SUR 06:26
PROVIDERS: ATTEND Urology
DX: R97.20 Elevated prostate specific antigen [PSA] (principal); C61 Malignant neoplasm of prostate; N40.1 Benign prostatic hyperplasia with lower urinary tract symptoms; R35.1 Nocturia; R33.8 Other retention of urine; I10 Essential (primary) hypertension; E11.9 Type 2 diabetes mellitus without complications; Z87.01 Personal history of pneumonia (recurrent); Z98.890 Other specified postprocedural states; Z91.018 Allergy to other foods
CPT/HCPCS: 36415; 52000; 55700; 76872; 80053; 81001; 82962; 85025; 85610; 85730; 87086; 88305; 88342; A6248; C1769; J0744; J1815; J2001; J2250; J2405; J2704; J3010; J7030